=== PATIENT | female | born 1980 | race Caucasian/White ===

== ENCOUNTER → 2021-08-28 | Outpatient (CLI) | payer MEDICAID, SELFPAY ==
--- NOTE | 2021-08-28 15:40 | CYSPIN_PTH ---
PATIENT: IVONNE BRADFORD [facility] U#:[id number] AGE/SX: 41/F ROOM: RE08/28/[address]: Dr. Angela Mantilla MD : 1980 BED: DIS: 08/28/2021 SPEC #: [id number] RECD: 08/29/21 07:28 STATUS: SHERLYN OBRIEN #: [id number] DAMIR: 08/28/21 15:[address]: Angela Mantilla DEPT: CYTOLOGY RECD BY: Nae De Oliveira Tissues: Urine Procedures: Pap Stain (control) Special Stain Group II Cytospin Fluid HEADER OPERATION: Not noted PRE-OP DIAGNOSIS: Gross hematuria TISSUE SUBMITTED: Urine for cytology DIAGNOSIS CYTOLOGY Urine for cytology (cytospin): Negative for malignant cells. See comment. VALENTINA:delfina 08/29/2021 COMMENT The specimen predominantly consists of squamous epithelial cells. Clinical correlation and appropriate follow up are necessary. CYTOLOGY STUDY Slides are reviewed. CYTOLOGY GROSS Received is 30 ml of yellow cloudy fluid labeled with the patient's name and and designated per the requisition as urine. Submitted for cytology preparation. / delfina 08/28/21 TC:4 CPT: 66339
[2021-08-28 17:48] LABS: Cytology, Body Fluid / CSF SEE PATHOLOGY REPORT
== END | disposition home or self-care (01) ==
PROVIDERS: Visit Provider Urology
DX: R31.0 Gross hematuria (principal)
CPT/HCPCS: 88108; 88313

== ENCOUNTER 2022-04-11 21:13 | Emergency (ER) | payer MEDICAID, SELFPAY ==
[2022-04-11 21:17] VITALS: BP 104/42; PULSE 80; RESP 11; TEMP 36.8; O2SAT 98; BMI 20.2
--- NOTE | 2022-04-11 21:19 | EKG12_ITS ---
Test Reason : DYSRHYTHMIA Blood Pressure : / mmHG Vent. Rate : 077 BPM Atrial Rate : 077 BPM P-R Int : 150 ms QRS Dur : 066 ms QT Int : 382 ms P-R-T Axes : 071 042 054 degrees QTc Int : 432 ms Normal sinus rhythm Low voltage QRS (Limb Leads) Confirmed by ROMERO NICHOLAS, ROSENDO ([id number]), magazine editor JANETTE REYNA ([id number]) on 04/13/2022 9:15:08 AM Referred By: KALI Confirmed By:ROSENDO JASSO MD
--- NOTE | 2022-04-11 22:20 | EDS_ITS ---
HPI History of Present Illness Chief Complaint: Palpitations Narrative Narrative: Patient is a four 2-year-old female who states that she has been having intermittent palpitations. She describes a sensation as her heart pounding up into her throat. She states this is been off and on for the past 1 to 2 weeks. She states that today she also felt numbness and tingling to her hands and some lightheaded sensation associated with it. She denies any excessive stimulant use or illicit drug use. She denies any family history of cardiac disease or cardiac dysrhythmia. She states that her symptoms are slightly different today than her baseline she presents for evaluation [facility] Medical History Smoker Home Medications sumatriptan succinate 100 mg tablet 1 - 2 tab PO DAILY 04/11/22 [History Last Taken Unknown] valacyclovir 1 gram tablet 1 tab PO DAILY PRN Cold Sores 04/11/22 [History Last Taken Unknown] Allergy/AdvReac Type Severity Reaction Status Date / Time No Known Allergies Allergy Verified 04/11/22 21:15 Surgical History (Updated 04/11/22 @ 21:21 by Neptali Claros) History of hysterectomy Social History Smoking Status: Current every day smoker tobacco type: cigarettes ROS ROS ED Constitutional Constitutional ED: Denies chills or fever(s) ENT ENT ED: Denies sore throat Cardiovascular Cardiovascular: Reports palpitations and racing heartbeat; Denies chest pain Respiratory/Chest Respiratory/Chest: Denies cough or dyspnea Gastrointestinal Gastrointestinal: Denies abdominal pain, diarrhea, nausea or vomiting Genitourinary Genitourinary ED: Denies dysuria Musculoskeletal Musculoskeletal: Denies myalgias Integumentary Denies rash Neurologic Neurologic: Denies headache(s) Psychiatric Psychiatric: Denies anxiety Hematologic/Lymphatic Hematologic/Lymphatic: Denies easy bleeding or easy bruising EXAM Physical Exam Const Vital Signs: 04/11/22 21:17 04/11/22 21:19 Temperature 98.3 F Temperature Source Temporal Pulse Rate 80 Respiratory Rate 11 L Respiratory Effort Normal Blood Pressure 104/42 L Blood Pressure Mean 62 Pulse Ox 98 Oxygen Delivery Method Room Air Positive well nourished and well developed General Appearance ED: well developed HEENT Reports moist mucous membranes HEENT Narrative: Thyroid is without nodule or goiter Eyes PERRL and EOMs intact bilaterally Neck supple and no JVD Neck Narrative: No carotid bruit Chest Wall palpation of chest normal Resp normal respiratory effort and clear to auscultation bilaterally Cardio regular rate and regular rhythm Rate: other Other Details: Radial pulses are plus 2 out of 4 bilaterally are equal and symmetric Extremity normal to inspection Extremity Narrative: No asymmetric edema no pitting edema negative Homans' sign bilaterally Neuro oriented x3 and CN's II-XII intact bilaterally Sensorium / Orientation: alert Psych mental status grossly normal Skin no rashes or lesions noted MDM MDM MDM Narrative Medical decision making narrative: Patient presented to the ER with stable vitals and spontaneous resolution of her symptoms. EKG showed sinus rhythm and on the monitor there was no cardiac dysrhythmia noted. I discussed with patient the need to perform basic blood work as well as a chest x-ray to assess for a possible cause of her palpitations. Patient states that as her symptoms have resolved her EKG is normal and vital stable that she would prefer to follow-up with her family doctor which she has scheduled for tomorrow morning and therefore does not want any imaging or laboratory studies obtained. Patient was instructed to return at any point if she changes her mind but as her vitals are stable and her EKG and registered nurse cardiac telemetry showed normal sinus rhythm she will be discharged as she wishes and will follow-up as directed Discharge Plan Triage Chief Complaint: Palpitations ED Provider: Jonny Fraire Dx/Rx/DC Orders Clinical Impression: Palpitations Instructions: ED Palpitations Prescriptions: No Action valacyclovir 1 gram tablet 1 tab PO DAILY PRN (Reason: Cold Sores) sumatriptan succinate 100 mg tablet 1 - 2 tab PO DAILY Primary Care Provider: Julius Cunningham Referrals: Julius Cunningham MD [Primary Care Provider] - Activity Restrictions/Additional Instructions: Please follow-up with your family doctor in the morning as you already have scheduled and discuss chest x-ray and blood work as well as Holter monitor studies to further assess the cause of your palpitations Disposition Disposition: Home, Self Care
[2022-04-11 22:38] VITALS: BP 108/74; PULSE 82; RESP 15; O2SAT 98
== END 2022-04-11 22:39 | disposition home or self-care (01) ==
PROVIDERS: Emergency Provider Emergency Medicine; PCP Family Medicine; Visit Provider Emergency Medicine
DX: R00.2 Palpitations (principal); F17.210 Nicotine dependence, cigarettes, uncomplicated
CPT/HCPCS: 93005; 99283